=== PATIENT | male | born 1940 | race Two or more races ===

== ENCOUNTER 2017-05-06 15:14 | Emergency (ER) | payer OTHER ==
--- NOTE | ~2017-05-06 | CR58 ---
[facility] A Service of [facility] RADIOLOGY TEXT RESULTS PATIENT: PEGGY MADERA LOCATION: [facility] : 44 UNIT #: [id number] AGE: [address]: Nati Mclean SEX: M ORDER DR: [id number] [facility] [address] [place], [place] [address] [id number] E MR#: [id number] Acc #: [id number] NAME: PEGGY MADERA : 1940 SEX: M STUDY DATE/TIME: 05/06/2017 15:50 UNIT: [facility] ROOM: STUDY DESCRIPTION: CR Cervical Spine 2 or 3 Views Attending Physician: Nati Mclean P.A.-C. Ordering Physician: Nati Mclean P.A.-C. Primary Care Physician: Alvin Corrigan Aprn MEDICAL IMAGING REPORT This report is preliminary unless electronic signature is present EXAMINATION Four views cervical spine. DATE 05/06/2017 HISTORY 76-year-old male who complains of neck pain and right shoulder pain for 2 weeks. No known injury. COMPARISON None. FINDINGS Craniocervical junction is intact. No acute cervical spine fracture or subluxation is seen. There is mild diminished disc height with posterior osteophyte formation at C5-6. Probable mild facet arthropathy on the left at C3-4 and C4-5. Probable mild facet arthropathy in the right at C5-6. No suspicious osteolytic or osteoblastic abnormality. IMPRESSION 1. Mild diminished disc height with posterior osteophyte formation at C5-6. This could result in canal stenosis at that level. If patient's symptoms persist, consider correlation to MRI cervical spine without contrast to evaluate for canal or foraminal compromise. 2. No acute cervical spine findings. Dictated by... Danielle Nance M.D. THIS IS AN ELECTRONICALLY VERIFIED REPORT Danielle Nance M.D. at 05/08/2017 8:39 AM [facility] A Service of [facility] RADIOLOGY TEXT RESULTS PATIENT: PEGGY MADERA LOCATION: [facility] #: [id number] : 44 UNIT #: [id number] AGE: [address]: Nati Mclean SEX: M ORDER DR: YOAN/dayan TD: 05/06/2017 20:13 JOB #: [id number] MEDICAL IMAGING REPORT Page 1 of 1 COPY
--- NOTE | ~2017-05-06 | CR230 ---
[facility] A Service of [facility] RADIOLOGY TEXT RESULTS PATIENT: PEGGY MADERA LOCATION: [facility] : 44 UNIT #: [id number] AGE: [address]: Nati Mclean SEX: M ORDER DR: [id number] [facility] [address] [place], [place] [address] [id number] E MR#: [id number] Acc #: [id number] NAME: PEGGY MADERA : 1940 SEX: M STUDY DATE/TIME: 05/06/2017 15:50 UNIT: [id number] ROOM: STUDY DESCRIPTION: CR Shoulder Min 2 View Rt Attending Physician: Nati Mclean P.A.-C. Ordering Physician: Nati Mclean P.A.-C. Primary Care Physician: Alvin Corrigan Aprn MEDICAL IMAGING REPORT This report is preliminary unless electronic signature is present EXAMINATION Two views right shoulder. DATE 05/06/2017 HISTORY 76-year-old male with neck pain and right shoulder pain for 2 weeks. No known injury. COMPARISON None. FINDINGS There is mild degenerative change of the right shoulder manifest as glenohumeral joint space narrowing. No significant marginal spurring is identified. There is no acromioclavicular or coracoclavicular separation. Imaged right ribs appear intact. Imaged right lung appears clear. 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 No acute abnormality of the right shoulder. Dictated by... Danielle Nance M.D. THIS IS AN ELECTRONICALLY VERIFIED REPORT Danielle Nance M.D. at 05/08/2017 8:39 AM YOAN/dayan TD: 05/06/2017 20:23 JOB #: [id number] [facility] A Service of [facility] RADIOLOGY TEXT RESULTS PATIENT: PEGGY MADERA LOCATION: [facility] : 44 UNIT #: [id number] AGE: [address]: Nati Mclean SEX: M ORDER DR: MEDICAL IMAGING REPORT Page 1 of 1 COPY
== END 2017-05-06 16:50 | disposition home or self-care (01) ==
LOC: CFTX 15:14 → CED 15:14 → CFTX 16:19
DX: M54.12 Radiculopathy, cervical region (principal); I10 Essential (primary) hypertension
CPT/HCPCS: 72040; 73030; 96372; 99284; J1885